=== PATIENT | male | born 1985 | race Caucasian/White ===

== ENCOUNTER 2019-12-16 18:06 | Emergency (ER) | payer SELFPAY ==
[2019-12-16 18:25] VITALS: BP 124/80; PULSE 101; TEMP 98.9; BMI 33.3
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
[2019-12-16] MEDS ORDERED: ACETAMINOPHEN 500 MG TABLET (FP) PO ONE (18:43)
[2019-12-16] MEDS ORDERED: ACETAMINOPHEN 500 MG TABLET (FP) ONE (18:44)
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
== END 2019-12-16 20:13 | disposition home or self-care (01) ==
LOC: JER 18:06 → JERFT 18:06
DX: M54.5 Low back pain (principal); S06.0X0A Concussion without loss of consciousness, initial encounter
CPT/HCPCS: 70450-TC; 72100-TC-FY; 72131-TC; 99285-25